=== PATIENT | male | born 1965 | race Caucasian/White ===

== ENCOUNTER 2017-08-19 10:08 | Inpatient (IN) | payer SELFPAY ==
[2017-08-19] MEDS ORDERED: DUONEB 0.5 MG/3 MG NEB ONE (10:24)
--- NOTE | 2017-08-19 10:26 | DR.GENAD ---
HPI - HPI Comment HPI Comment: GETTING WORSE. SOB IS WORSE TODAY. NO FEVER. COUGH NON PRODUCTIVE. HAVE RA ON MEDS THAT AFFECT HIS IMMUNE SYSTEM. COUGHING CAUSING INCREASE BACK PAIN. BACK PAIN DUE TO RA IS CHRONIC FOR PATIENT BUT IS WORSE TODAY. - Complaint/Symptoms Chief Complaint Doctors Comments: COUGH, COLD CONGESTION AND SOB TIMES ONE WEEK. ON ANTIBIOTICS. Chief Complaint:: PT. STARTED HAVING COLD SYMPTOMS LAST WEEK. PT. SEEN DR. ZHU ON TUESDAY AND WAS PRESCRIBED ANTIBIOITICS. PT. C/O SHORTNESS OF BREATH, BACK PAIN, AND A NON-PRODUCTIVE COUGH. PT. STATES HE IS UNABLE TO LIE FLAT DUE TO HIS SHORTNESS OF BREATH AND HIS BREATHING GETS BETTER WHEN HE HAS A FAN BLOWING IN HIS FACE. - Nurses notes reviewed Nurses Notes Review: Yes - Source History Provided: Patient - Mode of Arrival Mode of Arrival: Ambulatory - Timing Onset of Chief Complaint: 08/12/17 Came on: Gradually - Duration Duration: Constant Duration: Days - Severity Severity: Moderate PMH - PMH Past Medical History: Yes Past Medical History: Arthritis, GERD Past Surgical History: Yes Surgical History: Ortho Surgery - Family History History of Family Medical Conditions: Yes Family Medical History: Hypertension - Social History Does patient currently use any type of tobacco product: Yes Have you used tobacco products in the last 12 months: Yes Type of Tobacco Use: Cigarettes How many years tobacco product used: 39 Does any household member use tobacco: No Alcohol Use: Heavy Do you use any recreational Drugs:: No Lives With: Family Lives Where: Home - infectious screening In the last 2 months have you had wt loss of >10#?: NO Have you had fever, night sweats or hemotysis?: No Have you traveled outside the country in the last 6 months?: No ROS - Review of Systems Constitutional: Weakness, Fatigue Eyes: No Symptoms Reported. negative: Eye Pain, Discharge ENTM: Nose Discharge, Nose Congestion. negative: Ear Pain, Throat Pain Respiratoy: Non-Productive Cough, Short of Breath, Wheezing. negative: Hemoptysis Cardiovascular: Chest Pain, Palpitations Gastrointestinal/Abdominal: No Symptoms Reported Genitourinary: No Symptoms Reported Neurological: Headache, Weakness Musculoskeletal: Back Pain, Muscle Pain Integumentary: No Symptoms Reported Hematologic/Lymphatic: No Symptoms Reported Endocrine: No Symptoms Reported All Other Systems: Reviewed and Negative PE - Vital Signs Vitals: Temperature 97.7 F Pulse Rate [Left Radial] 116 Pulse Rate 121 Respiratory Rate 22 Blood Pressure 116/84 O2 Sat by Pulse Oximetry 97 - General Limitations: No Limitations General Appearance: Alert - Head Head Exam: Normal Inspection - Eyes Eye exam: Normal Appearance - ENT ENT Exam: Normal External Ear Exam External Ear Exam: Normal External Inspection TM/Canal Exam: Bilateral Normal Nose Exam: Normal Nose Exam Mouth Exam: Normal Inspection Throat Exam: Normal Inspection - Neck Neck Exam: Trachea Midline - Chest Chest Inspection: Symmetric Chest Wall Rise - Respiratory Respiratory Exam: Respiratory Distress Respiratory Exam: Bilateral Wheezing, Bilateral Rhonchi, Lower Wheezing, Lower Rhonchi - Cardiovascular Cardiovascular Exam: Tachycardia - Abdominal Exam Abdominal Exam: Normal Bowel Sounds, Soft. negative: Tenderness - Extremities Extremities Exam: Normal Inspection - Back Back Exam: Normal Inspection - Neurologic Neurological Exam: Alert, Oriented X3 - Psychiatric Psychiatric Exam: Normal Affect, Normal Mood - Skin Skin Exam: Normal Color MDM - Additional Information Additional Information Obtained From: Family - Differential Diagnosis Differential Diagnosis: BRONCHITIS, PNEUMONIA, COPD, BACK PAIN Course - Treatment Treatment: SEE ORDERS. - Consultation Consultation Comments: DISCUSS PATIENT WITH DR. BELLO. HE WILL ADMIT PATIENT. - Education/Counseling Education/Counseling: Patient, Family, Education Educated On: Treatment, Diagnosis ROR - Labs Reviewed Laboratory Results Reviewed?: Yes Result Diagrams: 08/22/17 17:41 08/22/17 17:41 Laboratory: WBC 8.5 X10^3/uL (3.6-10.0) 08/19/17 10:30 RBC 4.99 X10^6/uL (4.7-6.0) 08/19/17 10:30 Hgb 14.8 g/dL (13.5-18.0) 08/19/17 10:30 Hct 44.0 % (42.0-54.0) 08/19/17 10:30 MCV 88.2 fL (80.0-100.0) 08/19/17 10:30 MCH 29.6 pg (27.0-34.0) 08/19/17 10:30 MCHC 33.6 g/dL (33.0-35.0) 08/19/17 10:30 RDW 15.2 % (11.6-16.5) 08/19/17 10:30 Plt Count 62 X10^3/uL (150.0-450.0) L 08/19/17 10:30 MPV 10.5 fL (7.4-11.0) 08/19/17 10:30 Neut % 80.1 % (42.0-75.0) H 08/19/17 10:30 Lymph % 11.1 % (21.0-51.0) L 08/19/17 10:30 Millard % 6.5 % (0.0-13.0) 08/19/17 10:30 Eos % 1.3 % (0.9-2.9) 08/19/17 10:30 Baso % 1.0 % (0.2-1.0) 08/19/17 10:30 Neut # 6.8 x10^3/uL (2.2-4.8) H 08/19/17 10:30 Lymph # 0.9 X10^3/uL (1.3-2.9) L 08/19/17 10:30 Millard # 0.6 x10^3/uL (0.3-0.8) 08/19/17 10:30 Eos # 0.1 x10^3/uL (0.0-0.2) 08/19/17 10:30 Baso # 0.1 X10^3/uL (0.0-0.1) 08/19/17 10:30 Absolute Nucleated RBC 0.2 /100WBC 08/19/17 10:30 D-Dimer > 5000 ng/mL (0-400) H* 08/19/17 10:30 Sodium 135 mmol/L (136-145) L 08/19/17 10:30 Corrected Sodium TNP 08/19/17 10:30 Potassium 3.9 mmol/L (3.5-5.1) 08/19/17 10:30 Chloride 101 mmol/L (98-107) 08/19/17 10:30 Carbon Dioxide 25.8 mmol/L (21-32) 08/19/17 10:30 BUN 8 mg/dL (7-18) 08/19/17 10:30 Creatinine 0.65 mg/dL (0.70-1.30) L 08/19/17 10:30 Est GFR (MDRD) Af Amer > 60 (>60) 08/19/17 10:30 Est GFR (MDRD) Non-Af > 60 (>60) 08/19/17 10:30 Glucose 99 mg/dL (65-99) 08/19/17 10:30 Calcium 8.9 mg/dL (8.5-10.1) 08/19/17 10:30 Corrected Calcium 9.8 mg/dL (8.5-10.1) 08/19/17 10:30 Total Bilirubin 0.70 mg/dL (0.2-1.0) 08/19/17 10:30 AST 37 Units/L (15-37) 08/19/17 10:30 ALT 16 Units/L (12-78) 08/19/17 10:30 Alkaline Phosphatase 96 Units/L (46-116) 08/19/17 10:30 Total Protein 7.3 g/dL (6.4-8.2) 08/19/17 10:30 Albumin 2.9 g/dL (3.4-5.0) L 08/19/17 10:30 Globulin 4.4 g/dL (2.5-4.5) 08/19/17 10:30 Albumin/Globulin Ratio 0.7 Ratio (1.1-2.1) L 08/19/17 10:30 Specimen Type Clean catch urine 08/19/17 11:42 Urine Color Yellow (YELLOW) 08/19/17 11:42 Urine Appearance Clear (CLEAR) 08/19/17 11:42 Urine pH 6.0 (5.0 - 8.0) 08/19/17 11:42 Ur Specific [place] 1.010 (1.000-1.030) 08/19/17 11:42 Urine Protein Negative (NEGATIVE) 08/19/17 11:42 Urine Glucose (UA) Negative (NEGATIVE) 08/19/17 11:42 Urine Ketones Negative (NEGATIVE) 08/19/17 11:42 Urine Occult Blood Negative (NEGATIVE) 08/19/17 11:42 Urine Nitrite Negative (NEGATIVE) 08/19/17 11:42 Urine Bilirubin Negative (NEGATIVE) 08/19/17 11:42 Urine Urobilinogen Normal (NORMAL) 08/19/17 11:42 Ur Leukocyte Esterase Negative (NEGATIVE) 08/19/17 11:42 Urine RBC None seen /HPF (NEGATIVE) 08/19/17 11:42 Urine WBC None seen /HPF (NEGATIVE) 08/19/17 11:42 Ur Squamous Epith Cells Rare /HPF (NEGATIVE) 08/19/17 11:42 Amorphous Sediment Trace /HPF (NEGATIVE) 08/19/17 11:42 Urine Bacteria Negative /HPF (NEGATIVE) 08/19/17 11:42 Ur Culture Indicated? No/not indicated 08/19/17 11:42 - XRAY XRAY Interpreted by: Radiologist XRAY Findings: REPORT DISCUSS WITH PATIENT. - Diagnosis Discharge Problem: Respiratory distress Pneumonia Qualifiers: Pneumonia type: due to unspecified organism Laterality: bilateral Lung location : lower lobe of lung Qualified Code(s): J18.9 - Pneumonia, unspecified organism - Discharge Plan Disposition: ADMITTED INPATIENT Condition: Stable - Follow ups/Referrals - Instructions
--- NOTE | 2017-08-19 10:46 | RAD ---
HISTORY: Cough, shortness of breath Study: Single view chest Comparison: None Findings: Single portable view is submitted. The lungs are clear without consolidation, effusion or pneumothora x. The cardiac and mediastinal contours are within normal limits. The soft tissues are unremarkable. IMPRESSION: 1. No acute cardiopulmonary abnormality. Reported By:
[2017-08-19 10:56] LABS: BASOPHILS # (AUTO) 0.1 X10^3/uL (0.0-0.1); EOSINOPHILS # (AUTO) 0.1 x10^3/uL (0.0-0.2); EOSINOPHILS % (AUTO) 1.3 % (0.9-2.9); HEMOGLOBIN 14.8 g/dL (13.5-18.0); LYMPHOCYTES # (AUTO) 0.9 X10^3/uL (1.3-2.9); LYMPHOCYTES % (AUTO) 11.1 % (21.0-51.0); MEAN CORPUSCULAR HEMOGLOBIN 29.6 pg (27.0-34.0); MEAN CORPUSCULAR HGB CONC 33.6 g/dL (33.0-35.0); MEAN CORPUSCULAR VOLUME 88.2 fL (80.0-100.0); MEAN PLATELET VOLUME 10.5 fL (7.4-11.0); MONOCYTES # (AUTO) 0.6 x10^3/uL (0.3-0.8); MONOCYTES % (AUTO) 6.5 % (0.0-13.0); NEUTROPHILS # (AUTO) 6.8 x10^3/uL (2.2-4.8); NEUTROPHILS % (AUTO) 80.1 % (42.0-75.0); PLATELET COUNT 62 X10^3/uL (150.0-450.0); RED BLOOD COUNT 4.99 X10^6/uL (4.7-6.0); RED CELL DISTRIBUTION WIDTH 15.2 % (11.6-16.5); WHITE BLOOD COUNT 8.5 X10^3/uL (3.6-10.0)
[2017-08-19 11:11] LABS: ALANINE AMINOTRANSFERASE 16 Units/L (12-78); ALBUMIN 2.9 g/dL (3.4-5.0); ALKALINE PHOSPHATASE 96 Units/L (46-116); ASPARTATE AMINO TRANSFERASE 37 Units/L (15-37); BLOOD UREA NITROGEN 8 mg/dL (7-18); CALCIUM 8.9 mg/dL (8.5-10.1); CARBON DIOXIDE 25.8 mmol/L (21-32); CHLORIDE 101 mmol/L (98-107); COR CA(FOR HYPOALB) 9.8 mg/dL (8.5-10.1); CREATININE 0.65 mg/dL (0.70-1.30); SODIUM 135 mmol/L (136-145); TOTAL PROTEIN 7.3 g/dL (6.4-8.2); eGFR BLACK RACES > 60 (>60); eGFR NON BLACK RACES > 60 (>60)
[2017-08-19] MEDS ORDERED: SOLU-Medrol 125 MG VIAL IM ONE (11:28)
[2017-08-19] MEDS ORDERED: TUSSIONEX PENNKINETIC SUSP PO ONE (11:31)
[2017-08-19] MEDS ORDERED: ROCEPHIN VIAL 1 GM IM ONE (11:34)
[2017-08-19] MEDS ORDERED: TUSSIONEX PENNKINETIC SUSP ONE (11:35)
[2017-08-19] MEDS ORDERED: ROCEPHIN VIAL 1 GM ONE (11:35)
[2017-08-19] MEDS ORDERED: SOLU-Medrol 125 MG VIAL ONE (11:35)
[2017-08-19] MEDS ORDERED: XYLOCAINE 1 % (PLAIN) ONE (11:35)
[2017-08-19 12:19] LABS: BILIRUBIN,URINE NEGATIVE (NEGATIVE); BLOOD/HEMOGLOBIN,URINE NEGATIVE (NEGATIVE); GLUCOSE, URINE NEGATIVE (NEGATIVE); KETONES,URINE NEGATIVE (NEGATIVE); LEUKOCYTE ESTERASE ,URINE NEGATIVE (NEGATIVE); NITRITES,URINE NEGATIVE (NEGATIVE); PROTEIN,URINE NEGATIVE (NEGATIVE); UROBILINOGEN,URINE NORMAL (NORMAL)
[2017-08-19 12:22] LABS: APPEARANCE,URINE CLEAR (CLEAR); COLOR,URINE YELLOW (YELLOW)
[2017-08-19 12:26] LABS: AMORPHOUS SEDIMENT,UR TRACE /HPF (NEGATIVE); BACTERIA,URINE NEGATIVE /HPF (NEGATIVE); RBC,URINE NONE SEEN /HPF (NEGATIVE); SQUAMOUS EPITHELIAL CELL,UR RARE /HPF (NEGATIVE)
[2017-08-19] MEDS ORDERED: NS 100 ML IV 100 ML IV ONE ×2 (13:14→18:07)
--- NOTE | 2017-08-19 14:09 | CT ---
STUDY: CTA CHEST WITH CONTRAST History: Possible pneumonia/bronchitis. Midsternal chest pain and shortness of breath today. D-dimer 5.0. Comparison: None. Technique: Multiple axial images of the chest were obtained from the thoracic inlet to the upper abdo men after the administration of IV contrast. Image acquisition was optimized for evaluation of pulmon ashley arterial system. 3D, coronal and sagittal reformatted images were performed and reviewed. Automa edgar exposure control (AEC) was utilized to adjust the MA and/or kV. Findings: There is no evidence of abnormal filling defect in the main pulmonary arteries and their major branch es to indicate presence of acute pulmonary thromboembolic disease. There is no evidence of aortic an eurysm or dissection. There is no significant pericardial effusion. Multiple lymph nodes are noted in the mediastinum. No pathologically enlarged lymph nodes are identified. There is some atelectasis in the both lung bases. There are areas of ground-glass opacity in the righ t upper lobe, right middle lobe and both lower lobes. Ill-defined nodular densities are noted in the right middle lobe and lingular segment of the left upper lobe. There is no evidence of effusion or pn eumothorax. The visualized solid visceral organs in the upper abdomen are otherwise unremarkable. Note is made of multiple lymph nodes within the mesentery. IMPRESSION: 1. No evidence of acute pulmonary thromboembolic disease. 2. Ill-defined ground-glass opacities and nodular airspace opacities in both lungs as described. Imag ing characteristics favor infectious or inflammatory process. Clinical correlation for pneumonia is r ecommended. Reported By:
[2017-08-19] MEDS ORDERED: SALINE 3% 15 ML NEB TX NEB ONE (15:15)
[2017-08-19] MEDS ORDERED: TUSSIONEX PENNKINETIC SUSP PO PRN (15:19)
[2017-08-19] MEDS ORDERED: SALINE 3% 15 ML NEB TX ONE (15:21)
[2017-08-19] MEDS ORDERED: PROVENTIL NEB TX 0.083% 2.5MG/ 3ML NEB PRN (15:28)
[2017-08-19] MEDS ORDERED: ZITHROMAX INJ 500 MG VIAL IV ONE (15:54)
[2017-08-19] MEDS: NS 1/2 1000 ML IV 1,000 ML IV SCH (15:54)
[2017-08-19] MEDS: ZITHROMAX INJ 500 MG VIAL 500 MG in NS 250 ML IV 250 ML IV SCH (15:54)
[2017-08-19] MEDS ORDERED: NS 1/2 1000 ML IV 1,000 ML IV ONE (15:54)
[2017-08-19] MEDS ORDERED: NS 250 ML IV 250 ML IV ONE (15:55)
[2017-08-19] MEDS: DUONEB 0.5 MG/3 MG NEB SCH ×2 (16:41→18:53)
[2017-08-19] MEDS ORDERED: MERREM VIAL ONE (18:07)
[2017-08-19] MEDS: ROBITUSSIN DM PO SCH ×2 (18:16→21:13)
[2017-08-19] MEDS: MERREM VIAL 1,000 MG in NS 100 ML IV 100 ML IV SCH ×2 (19:45→22:00)
[2017-08-20] MEDS: DUONEB 0.5 MG/3 MG NEB SCH ×4 (01:02→17:10)
[2017-08-20] MEDS: MERREM VIAL 1,000 MG in NS 100 ML IV 100 ML IV SCH ×3 (06:05→22:05)
[2017-08-20 06:31] LABS: BASOPHILS # (AUTO) 0.1 X10^3/uL (0.0-0.1); BASOPHILS % (AUTO) 0.5 % (0.2-1.0); EOSINOPHILS % (AUTO) 0.4 % (0.9-2.9); HEMATOCRIT 43.3 % (42.0-54.0); HEMOGLOBIN 14.7 g/dL (13.5-18.0); LYMPHOCYTES # (AUTO) 1.2 X10^3/uL (1.3-2.9); LYMPHOCYTES % (AUTO) 9.9 % (21.0-51.0); MEAN CORPUSCULAR HEMOGLOBIN 29.7 pg (27.0-34.0); MEAN CORPUSCULAR HGB CONC 33.9 g/dL (33.0-35.0); MEAN CORPUSCULAR VOLUME 87.6 fL (80.0-100.0); MEAN PLATELET VOLUME 10.1 fL (7.4-11.0); MONOCYTES # (AUTO) 0.8 x10^3/uL (0.3-0.8); MONOCYTES % (AUTO) 6.6 % (0.0-13.0); NEUTROPHILS # (AUTO) 9.9 x10^3/uL (2.2-4.8); NEUTROPHILS % (AUTO) 82.6 % (42.0-75.0); PLATELET COUNT 55 X10^3/uL (150.0-450.0); RED BLOOD COUNT 4.95 X10^6/uL (4.7-6.0)
[2017-08-20 06:34] LABS: ALANINE AMINOTRANSFERASE 15 Units/L (12-78); ALBUMIN 2.6 g/dL (3.4-5.0); ALKALINE PHOSPHATASE 93 Units/L (46-116); ASPARTATE AMINO TRANSFERASE 40 Units/L (15-37); BLOOD UREA NITROGEN 11 mg/dL (7-18); CALCIUM 8.6 mg/dL (8.5-10.1); CARBON DIOXIDE 24.7 mmol/L (21-32); CHLORIDE 105 mmol/L (98-107); COR CA(FOR HYPOALB) 9.7 mg/dL (8.5-10.1); COR NA(FOR HYPERGLY) 140 mmol/L (136-145); SODIUM 140 mmol/L (136-145); TOTAL PROTEIN 6.6 g/dL (6.4-8.2); eGFR BLACK RACES > 60 (>60); eGFR NON BLACK RACES > 60 (>60)
[2017-08-20] MEDS ORDERED: METHOTREXATE PO SCH (09:00)
[2017-08-20] MEDS: TOPROL XL PO SCH (09:08)
[2017-08-20] MEDS: ROBITUSSIN DM PO SCH ×4 (09:08→21:25)
[2017-08-20] MEDS: ZITHROMAX INJ 500 MG VIAL 500 MG in NS 250 ML IV 250 ML IV SCH (09:14)
[2017-08-20 14:17] VITALS: BMI 14.4
[2017-08-20] MEDS ORDERED: NS 1/2 1000 ML IV 1,000 ML IV ONE (14:54)
[2017-08-20] MEDS: NS 1/2 1000 ML IV 1,000 ML IV SCH ×2 (14:58→20:00)
[2017-08-20] MEDS: NORCO 5/325 MG TAB PO PRN ×2 (15:30→22:17)
[2017-08-20] MEDS: ZOFRAN INJ 4 MG VIAL IVP PRN (16:58)
[2017-08-21] MEDS: DUONEB 0.5 MG/3 MG NEB SCH ×4 (01:00→17:09)
[2017-08-21] MEDS ORDERED: MORPHINE SULFATE INJ 2 MG INJ IVP ONE (01:17)
[2017-08-21] MEDS ORDERED: NS 1/2 1000 ML IV 1,000 ML IV ONE (05:12)
[2017-08-21] MEDS: MERREM VIAL 1,000 MG in NS 100 ML IV 100 ML IV SCH ×3 (05:25→22:10)
[2017-08-21] MEDS: NORCO 5/325 MG TAB PO PRN ×2 (05:25→12:27)
[2017-08-21] MEDS: NS 1/2 1000 ML IV 1,000 ML IV SCH (05:28)
[2017-08-21 06:19] LABS: BASOPHILS # (AUTO) 0.1 X10^3/uL (0.0-0.1); BASOPHILS % (AUTO) 0.7 % (0.2-1.0); EOSINOPHILS # (AUTO) 0.2 x10^3/uL (0.0-0.2); EOSINOPHILS % (AUTO) 2.2 % (0.9-2.9); HEMATOCRIT 38.8 % (42.0-54.0); HEMOGLOBIN 13.2 g/dL (13.5-18.0); LYMPHOCYTES # (AUTO) 1.4 X10^3/uL (1.3-2.9); LYMPHOCYTES % (AUTO) 12.8 % (21.0-51.0); MEAN CORPUSCULAR HEMOGLOBIN 29.8 pg (27.0-34.0); MEAN CORPUSCULAR VOLUME 87.6 fL (80.0-100.0); MEAN PLATELET VOLUME 11.4 fL (7.4-11.0); MONOCYTES # (AUTO) 0.7 x10^3/uL (0.3-0.8); NEUTROPHILS # (AUTO) 8.7 x10^3/uL (2.2-4.8); NEUTROPHILS % (AUTO) 78.3 % (42.0-75.0); PLATELET COUNT 44 X10^3/uL (150.0-450.0); RED BLOOD COUNT 4.43 X10^6/uL (4.7-6.0); RED CELL DISTRIBUTION WIDTH 15.5 % (11.6-16.5); WHITE BLOOD COUNT 11.1 X10^3/uL (3.6-10.0)
[2017-08-21 06:34] LABS: ALANINE AMINOTRANSFERASE 23 Units/L (12-78); ALBUMIN 2.4 g/dL (3.4-5.0); ALKALINE PHOSPHATASE 92 Units/L (46-116); ASPARTATE AMINO TRANSFERASE 56 Units/L (15-37); BLOOD UREA NITROGEN 11 mg/dL (7-18); CALCIUM 8.1 mg/dL (8.5-10.1); CARBON DIOXIDE 25.1 mmol/L (21-32); CHLORIDE 104 mmol/L (98-107); COR CA(FOR HYPOALB) 9.4 mg/dL (8.5-10.1); CREATININE 0.54 mg/dL (0.70-1.30); SODIUM 137 mmol/L (136-145); TOTAL PROTEIN 5.9 g/dL (6.4-8.2); eGFR BLACK RACES > 60 (>60); eGFR NON BLACK RACES > 60 (>60)
[2017-08-21 06:52] LABS: PLATELET MORPHOLOGY COMMENT NORMAL (NORMAL)
--- NOTE | 2017-08-21 07:30 | RAD ---
Examination: Portable AP chest History: Pneumonia, respiratory distress Comparison reference: 08/19/2017 Findings: Continued normal heart size. Slight interval increase in bilateral interstitial prominence without evidence for focal consolidation, pneumothorax or developing pleural fluid. Impression: Increasing interstitial bilateral densities consistent with perivascular edema, less like ly infection. This process may be cardiogenic or related to hypovolemia. Reported By:
[2017-08-21] MEDS: ZITHROMAX INJ 500 MG VIAL 500 MG in NS 250 ML IV 250 ML IV SCH (08:46)
[2017-08-21] MEDS: ROBITUSSIN DM PO SCH ×4 (08:46→21:30)
[2017-08-21] MEDS: TOPROL XL PO SCH ×2 (08:46→08:54)
[2017-08-21] MEDS: ZOFRAN INJ 4 MG VIAL IVP PRN (11:25)
[2017-08-21] MEDS: MORPHINE SULFATE INJ 2 MG INJ IVP PRN (20:23)
--- NOTE | 2017-08-21 22:04 | CT ---
Indication: Pain Exam: CT abdomen and pelvis without contrast Technique: Axial spiral images were obtained from the level above the lung bases through the pubis sy mphysis without contrast Comparison: CT chest 08/19/2017 . Findings: There are hazy interstitial and airspace opacities scattered along both lungs with small bi basilar pleural effusions which is larger on the right than the left and have increased in size. The liver is mildly enlarged. No focal lesion is seen. The gallbladder is normal size with no gallstones or wall thickening. The spleen is normal size and density. There is mild free fluid around the liver and gallbladder extending inferiorly into the paracolic region and pelvis. The bladder is unremarkabl e . The prostate gland is top-normal in size . The pancreas and bile ducts are normal. The adrenals a re normal . The kidneys are normal size with no hydronephrosis, renal stone or mass. The appendix is unremarkable with no pericecal inflammation. There is moderate feces in the transverse and right colo n. Moderate degenerative changes are seen at L5-S1 with no acute abnormality seen. Impression: Mild hepatomegaly Mild ascites No hydronephrosis or renal stones. Constipation with no bowel obstruction Hazy bibasilar interstitial and airspace opacities which are more prominent and could represent pulmo nary edema and/or pneumonia, recommend follow-up . Small bibasilar pleural effusions on the right greater the left with associated bibasilar atelectasis which is more prominent , recommend follow-up with chest x-rays. Reported By:
[2017-08-21 22:29] LABS: ABG BASE EXCESS 2.9 mmol/L (-2.0-2.0); ABG HCO3 25.5 mmol/L (22-26)
[2017-08-21 22:30] LABS: FRACTIONATED INSPIRED OXYGEN 28
[2017-08-22] MEDS ORDERED: NS 1/2 1000 ML IV 1,000 ML IV ONE (00:33)
[2017-08-22] MEDS: DUONEB 0.5 MG/3 MG NEB SCH ×4 (00:37→12:04)
[2017-08-22] MEDS: NS 1/2 1000 ML IV 1,000 ML IV SCH ×2 (00:51→16:58)
--- NOTE | 2017-08-22 00:54 | US ---
HISTORY: Testicular pain, history of torsion Study: None Comparison: None Technique: Multiple alvarez scale and Doppler images of the right and left testicles were obtained Findings: There are multiple tiny echogenic foci within both testicles, suggestive for microlithiasis. No intra parenchymal mass within either testicle is otherwise identified. Normal, symmetric color flow is obs erved. The right testicle measures 4 x 2.6 x 2.7 cm. The left testicle measures 3.7 x 2.0 x 3.4 cm. The epididymides are unremarkable without mass or cystic lesion. IMPRESSION: Bilateral microlithiasis. Otherwise, unremarkable evaluation of the testicles without evidence of tor carrington. Reported By:
[2017-08-22] MEDS: MORPHINE SULFATE INJ 2 MG INJ IVP PRN ×2 (03:20→09:18)
[2017-08-22] MEDS: NORCO 5/325 MG TAB PO PRN (03:21)
[2017-08-22 05:42] LABS: ABG BASE EXCESS 2.8 mmol/L (-2.0-2.0)
[2017-08-22 05:43] LABS: FRACTIONATED INSPIRED OXYGEN 36
[2017-08-22 05:47] LABS: ABG HCO3 25.9 mmol/L (22-26)
[2017-08-22] MEDS: MERREM VIAL 1,000 MG in NS 100 ML IV 100 ML IV SCH ×2 (06:05→14:20)
[2017-08-22] MEDS ORDERED: COLACE CAP 100 MG PO PRN (06:17)
[2017-08-22] MEDS ORDERED: MILK OF MAGNESIA PO PRN (06:17)
[2017-08-22 06:28] LABS: BASOPHILS # (AUTO) 0.1 X10^3/uL (0.0-0.1); BASOPHILS % (AUTO) 0.8 % (0.2-1.0); EOSINOPHILS # (AUTO) 0.1 x10^3/uL (0.0-0.2); EOSINOPHILS % (AUTO) 1.2 % (0.9-2.9); HEMATOCRIT 40.7 % (42.0-54.0); HEMOGLOBIN 13.7 g/dL (13.5-18.0); LYMPHOCYTES # (AUTO) 1.5 X10^3/uL (1.3-2.9); LYMPHOCYTES % (AUTO) 12.9 % (21.0-51.0); MEAN CORPUSCULAR HEMOGLOBIN 29.9 pg (27.0-34.0); MEAN CORPUSCULAR HGB CONC 33.7 g/dL (33.0-35.0); MEAN CORPUSCULAR VOLUME 88.6 fL (80.0-100.0); MEAN PLATELET VOLUME 12.2 fL (7.4-11.0); MONOCYTES # (AUTO) 0.5 x10^3/uL (0.3-0.8); MONOCYTES % (AUTO) 4.2 % (0.0-13.0); NEUTROPHILS # (AUTO) 9.1 x10^3/uL (2.2-4.8); NEUTROPHILS % (AUTO) 80.9 % (42.0-75.0); PLATELET COUNT 39 X10^3/uL (150.0-450.0); RED BLOOD COUNT 4.59 X10^6/uL (4.7-6.0); RED CELL DISTRIBUTION WIDTH 15.4 % (11.6-16.5); WHITE BLOOD COUNT 11.3 X10^3/uL (3.6-10.0)
[2017-08-22 06:39] LABS: ALANINE AMINOTRANSFERASE 29 Units/L (12-78); ALBUMIN 2.6 g/dL (3.4-5.0); ALKALINE PHOSPHATASE 113 Units/L (46-116); ASPARTATE AMINO TRANSFERASE 72 Units/L (15-37); BLOOD UREA NITROGEN 11 mg/dL (7-18); CALCIUM 8.2 mg/dL (8.5-10.1); CARBON DIOXIDE 24.5 mmol/L (21-32); CHLORIDE 100 mmol/L (98-107); COR CA(FOR HYPOALB) 9.3 mg/dL (8.5-10.1); COR NA(FOR HYPERGLY) 134 mmol/L (136-145); CREATININE 0.66 mg/dL (0.70-1.30); SODIUM 134 mmol/L (136-145); TOTAL PROTEIN 6.2 g/dL (6.4-8.2); eGFR BLACK RACES > 60 (>60); eGFR NON BLACK RACES > 60 (>60)
[2017-08-22 07:08] LABS: PLATELET MORPHOLOGY COMMENT NORMAL (NORMAL)
[2017-08-22] MEDS: ROBITUSSIN DM PO SCH ×3 (09:17→17:56)
[2017-08-22] MEDS: TOPROL XL PO SCH (09:17)
[2017-08-22] MEDS: ZITHROMAX INJ 500 MG VIAL 500 MG in NS 250 ML IV 250 ML IV SCH (09:17)
[2017-08-22] MEDS ORDERED: SOLU-Medrol 125 MG VIAL IVP SCH (14:00)
[2017-08-22] MEDS ORDERED: PULMICORT NEB TX 0.5 MG NEB SCH (14:15)
[2017-08-22] MEDS ORDERED: XOPENEX 1.25 MG/3 ML NEBULE NEB ONE (16:12)
[2017-08-22] MEDS: XOPENEX 1.25 MG/3 ML NEBULE NEB SCH ×2 (16:15→16:54)
[2017-08-22 16:42] LABS: ABG HCO3 11.6 mmol/L (22-26)
[2017-08-22] MEDS ORDERED: SODIUM BICARBONATE 8.4% INJ ADULT IVP ONE (16:58)
[2017-08-22 17:09] LABS: BILIRUBIN,URINE 1+ (NEGATIVE); BLOOD/HEMOGLOBIN,URINE 1+ (NEGATIVE); GLUCOSE, URINE NEGATIVE (NEGATIVE); KETONES,URINE 1+ (NEGATIVE); LEUKOCYTE ESTERASE ,URINE 1+ (NEGATIVE); NITRITES,URINE NEGATIVE (NEGATIVE); PROTEIN,URINE 3+ (NEGATIVE); UROBILINOGEN,URINE 3+ (NORMAL)
[2017-08-22 17:23] VITALS: BP 98/69
[2017-08-22 17:34] LABS: APPEARANCE,URINE CLEAR (CLEAR); BACTERIA,URINE NEGATIVE /HPF (NEGATIVE); COLOR,URINE ORANGE (YELLOW); HYALINE CASTS, URINE MANY /LPF (NEGATIVE); MUCUS,URINE MODERATE /HPF (NEGATIVE); RBC,URINE RARE /HPF (NEGATIVE); SQUAMOUS EPITHELIAL CELL,UR RARE /HPF (NEGATIVE)
[2017-08-22] MEDS ORDERED: NS 1000 ML 1,000 ML IV SCH (18:00)
[2017-08-22] MEDS ORDERED: LEVAQUIN PREMIX IV 500 MG 500 MG/100 ML BAG IV SCH (18:00)
--- NOTE | 2017-08-22 18:10 | RAD ---
Examination: Portable AP chest Comparison reference 08/21/2017 Findings: Continued normal heart size with diffuse interstitial infiltrates consistent with residual pulmonary edema. There is no evidence for consolidation, pneumothorax or large pleural effusion. Impression: Stable chest. Findings continue to suggest. Vascular pulmonary edema which may be cardiog enic or related to hypervolemia. Reported By:
[2017-08-22 18:11] LABS: BASOPHILS # (AUTO) 0.1 X10^3/uL (0.0-0.1); BASOPHILS % (AUTO) 0.4 % (0.2-1.0); EOSINOPHILS % (AUTO) 0.2 % (0.9-2.9); HEMATOCRIT 43.8 % (42.0-54.0); HEMOGLOBIN 14.5 g/dL (13.5-18.0); LYMPHOCYTES % (AUTO) 6.7 % (21.0-51.0); MEAN CORPUSCULAR HEMOGLOBIN 29.8 pg (27.0-34.0); MEAN CORPUSCULAR VOLUME 90.3 fL (80.0-100.0); MEAN PLATELET VOLUME 10.5 fL (7.4-11.0); MONOCYTES # (AUTO) 0.3 x10^3/uL (0.3-0.8); MONOCYTES % (AUTO) 2.4 % (0.0-13.0); NEUTROPHILS # (AUTO) 13.2 x10^3/uL (2.2-4.8); NEUTROPHILS % (AUTO) 90.3 % (42.0-75.0); PLATELET COUNT 29 X10^3/uL (150.0-450.0); RED BLOOD COUNT 4.85 X10^6/uL (4.7-6.0); RED CELL DISTRIBUTION WIDTH 16.1 % (11.6-16.5); WHITE BLOOD COUNT 14.6 X10^3/uL (3.6-10.0)
[2017-08-22 18:31] LABS: BLOOD UREA NITROGEN 19 mg/dL (7-18); CALCIUM 8.5 mg/dL (8.5-10.1); CARBON DIOXIDE 22.6 mmol/L (21-32); CHLORIDE 97 mmol/L (98-107); COR NA(FOR HYPERGLY) 137 mmol/L (136-145); CREATININE 1.21 mg/dL (0.70-1.30); SODIUM 135 mmol/L (136-145); TROPONIN I 0.16 ng/mL (0-1.5); eGFR BLACK RACES > 60 (>60); eGFR NON BLACK RACES > 60 (>60)
[2017-08-22 18:35] LABS: ALANINE AMINOTRANSFERASE 298 Units/L (12-78); ALBUMIN 2.6 g/dL (3.4-5.0); ALKALINE PHOSPHATASE 126 Units/L (46-116); ASPARTATE AMINO TRANSFERASE 746 Units/L (15-37); CKMB % 0.6 % (<4); COR CA(FOR HYPOALB) 9.6 mg/dL (8.5-10.1); CREATINE KINASE 230 Units/L (39-308); CREATINE KINASE MB 1.4 ng/mL (0-4.0); TOTAL PROTEIN 6.2 g/dL (6.4-8.2)
[2017-08-22 18:45] LABS: BAND NEUTROPHILS % 5 % (0-10); PLATELET MORPHOLOGY COMMENT NORMAL (NORMAL)
== END 2017-08-22 19:30 | disposition short-term general hospital (02) | DRG 194 ==
LOC: ER 10:18 → ICU 15:15
PROVIDERS: ADMIT Internal Medicine; ATTEND Obstetrics & Gynecology Obstetrics
DX: J18.8 Other pneumonia, unspecified organism (principal); R06.03 Acute respiratory distress; J44.1 Chronic obstructive pulmonary disease with (acute) exacerbation; R06.02 Shortness of breath; M06.80 Other specified rheumatoid arthritis, unspecified site; Z72.0 Tobacco use
CPT/HCPCS: 36415; 36600; 71010; 71275; 74176; 76870; 80053; 80307; 81001; 82550; 82553; 82803; 83605; 83735; 84484; 85025; 85378; 87040; 87070; 87086; 87205; 93005; 93010; 94640; 94660; 96365; 96372; 96374; 99221; 99231; 99284; A4222; A4618; A7030; G0434; J0456; J0696; J2001; J2185; J2270; J2405; J2930; J3490; J7620; J7626; J8610